=== PATIENT | female | born 1940 | race Caucasian/White ===

== ENCOUNTER 2020-12-04 16:39 | Inpatient (IN) ==
[2020-12-04 19:54] LABS: Urine Appearance Cloudy; Urine Bilirubin Negative (Negative); Urine Blood 2+ (Negative); Urine Color Yellow; Urine Glucose Negative (Negative); Urine Ketones Trace (Negative); Urine Nitrite Positive (Negative); Urine Protein Negative (Negative); Urine Specific Gravity 1.008 (1.010-1.030); Urine Urobilinogen Negative (Negative)
[2020-12-04 19:59] LABS: Urine Bacteria 3+ (Absent); Urine Red Blood Cell Trace(0-2/hpf) (Absent); Urine Squamous Epithelial Cell Present (Absent); Urine White Blood Cell 3+(>20/hpf) (Absent)
[2020-12-04 20:27] LABS: Urine Benzodiazepine Screen None Detected (None Detect); Urine Cannabinoids Screen None Detected (None Detect); Urine Opiates Screen None Detected (None Detect)
[2020-12-04 21:01] LABS: ABS Lymphocytes 0.9 10^3/ul (1.0-4.8); ABS Monocytes 0.5 10^3/ul (0-0.8); ABS Neutrophils 13.4 10^3/ul (1.5-7.7); Hematocrit 36 % (35-47); Hemoglobin 11.8 g/dL (12.0-16.0); Lymphocyte % 5.8 %; Mean Corpuscular HGB Conc 33 g/dL (31-36); Mean Corpuscular Hemoglobin 30 pg (27-31); Mean Corpuscular Volume 92 fL (80-97); Mean Platelet Volume 6.8 fL (7.4-10.4); Platelet Count 285 10^3/uL (150-450); Red Blood Count 3.94 10^6 /uL (3.70-4.87); Red Cell Distribution Width 13 % (10-15); White Blood Count 14.7 10^3/uL (3.5-10.8)
[2020-12-04] MEDS ORDERED: cefTRIAXone 1 gm/50 mL NS BAG 1 GM/50 ML BAG IV ONE (21:13)
[2020-12-04 21:15] LABS: Urine Buprenorphine Screen None Detected (None Detect); Urine Fentanyl Screen None Detected (None Detect); Urine Hydrocodone Screen None Detected (None Detect)
[2020-12-04 21:19] LABS: Troponin I 0.01 ng/mL (<0.03)
[2020-12-04 21:20] LABS: Albumin 3.9 g/dL (3.2-5.2); Albumin/Globulin Ratio 1.4 (1-3); BUN/Creatinine Ratio 22.1 (8-20); C Reactive Protein 51.38 mg/L (<8.01); Calcium 8.9 mg/dL (8.6-10.3); EGFR African American 61.9 (>60); EGFR Non-African American 51.1 (>60); Globulin 2.8 g/dL (2-4); Potassium 3.9 mmol/L (3.5-5.0); Total Bilirubin 1.1 mg/dL (0.2-1.0); Total Protein 6.7 g/dL (6.4-8.9)
[2020-12-04 22:12] LABS: INR 1.14 (0.82-1.09)
[2020-12-05] MEDS: NS 0.9% 1000 ml BAG 1,000 ML IV SCH ×2 (00:06→16:46)
[2020-12-05] MEDS: Heparin 5000 UNITS/ML 1 mL VIAL SUBCUT SCH ×4 (01:04→22:14)
[2020-12-05] MEDS ORDERED: Iodixanol (CONTRAST) 320 MG/ML 100 ML SDV IV ONE (06:16)
[2020-12-05 08:49] LABS: ABS Lymphocytes 0.7 10^3/ul (1.0-4.8); ABS Monocytes 0.4 10^3/ul (0-0.8); Hematocrit 33 % (35-47); Hemoglobin 11.3 g/dL (12.0-16.0); Lymphocyte % 5.1 %; Mean Corpuscular HGB Conc 34 g/dL (31-36); Mean Corpuscular Hemoglobin 31 pg (27-31); Mean Corpuscular Volume 90 fL (80-97); Mean Platelet Volume 6.7 fL (7.4-10.4); Platelet Count 277 10^3/uL (150-450); Red Blood Count 3.69 10^6 /uL (3.70-4.87); Red Cell Distribution Width 13 % (10-15); White Blood Count 13.2 10^3/uL (3.5-10.8)
[2020-12-05 08:59] LABS: BUN/Creatinine Ratio 24.7 (8-20); Calcium 8.5 mg/dL (8.6-10.3); EGFR African American 87.5 (>60); EGFR Non-African American 72.3 (>60); Potassium 3.5 mmol/L (3.5-5.0)
[2020-12-06] MEDS: NS 0.9% 1000 ml BAG 1,000 ML IV SCH (05:00)
[2020-12-06 06:27] LABS: ABS Lymphocytes 1.2 10^3/ul (1.0-4.8); ABS Monocytes 0.6 10^3/ul (0-0.8); ABS Neutrophils 8.3 10^3/ul (1.5-7.7); Eosinophil % 0.2 %; Hematocrit 31 % (35-47); Hemoglobin 10.6 g/dL (12.0-16.0); Lymphocyte % 12.1 %; Mean Corpuscular HGB Conc 34 g/dL (31-36); Mean Corpuscular Hemoglobin 31 pg (27-31); Mean Corpuscular Volume 91 fL (80-97); Mean Platelet Volume 7.2 fL (7.4-10.4); Platelet Count 261 10^3/uL (150-450); Red Blood Count 3.46 10^6 /uL (3.70-4.87); Red Cell Distribution Width 13 % (10-15); White Blood Count 10.1 10^3/uL (3.5-10.8)
[2020-12-06] MEDS ORDERED: cefTRIAXone 1 gm/50 mL NS BAG 1 GM/50 ML BAG IVPB ONE ×2 (06:30→08:00)
[2020-12-06 06:37] LABS: BUN/Creatinine Ratio 28.8 (8-20); EGFR African American 104.5 (>60); EGFR Non-African American 86.4 (>60); Potassium 3.1 mmol/L (3.5-5.0)
[2020-12-06] MEDS: Heparin 5000 UNITS/ML 1 mL VIAL SUBCUT SCH ×2 (06:44→14:53)
[2020-12-06] MEDS ORDERED: fentaNYL 100 mcg/2 ml 50 MCG/ML VIAL ONE ×2 (07:41→11:40)
[2020-12-06] MEDS ORDERED: Etomidate 20 mg/10 ml 2 MG/ML 10 ml VIAL ONE (07:43)
[2020-12-06] MEDS ORDERED: Glycopyrrolate IV 0.2 MG/ML 1 ML VIAL ONE (07:45)
[2020-12-06] MEDS ORDERED: Rocuronium 50 mg VIAL 10 mg/ml 5 ml VIAL (50 mg) ONE (07:45)
[2020-12-06] MEDS ORDERED: Succinylcholine 200 mg VIAL 20 mg/ml 10 ml VIAL (200 mg) ONE (07:45)
[2020-12-06] MEDS ORDERED: ROPIVACAINE 5 MG/ML 30 ML BTL (0.5%) ONE (07:50)
[2020-12-06] MEDS ORDERED: Midazolam 2 mg/2 ml VIAL 1 mg/ml 2 ml VIAL (2 mg) ONE (07:50)
[2020-12-06] MEDS ORDERED: Phenylephrine 40 mcg/mL 10mL (400mcg) SYRINGE ONE (07:51)
[2020-12-06] MEDS ORDERED: EPHEDrine (Pressors) 50 MG/ML VIAL ONE (07:52)
[2020-12-06] MEDS ORDERED: ceFAZolin VIAL VIAL ONE (08:39)
[2020-12-06 09:12] LABS: Magnesium 2.2 mg/dL (1.9-2.7)
[2020-12-06] MEDS ORDERED: Dexamethasone IV 4 MG/ML VIAL 1 ml VIAL ONE (10:25)
[2020-12-06] MEDS ORDERED: Ondansetron 4 mg VIAL 2 MG/ML 2 ml VIAL ONE (10:25)
[2020-12-06] MEDS ORDERED: Naloxone 0.4 mg VIAL 0.4 mg/ml 1 ml VIAL IV PRN (10:49)
[2020-12-06] MEDS ORDERED: Ondansetron 4 mg VIAL 2 MG/ML 2 ml VIAL IV PRN (10:49)
[2020-12-06] MEDS: fentaNYL 100 mcg/2 ml 50 MCG/ML VIAL IV PRN ×2 (11:41→12:07)
[2020-12-06] MEDS ORDERED: Morphine 2 MG/ML SYRINGE IV PRN (12:05)
[2020-12-06] MEDS ORDERED: Potassium Chlor 20 meq TAB.ER PO ONE (16:21)
[2020-12-06] MEDS: ceFAZolin 1 GM X 3 DOSES POST-OP Q8H (AddVan) IVPB SCH (18:58)
[2020-12-07] MEDS: ceFAZolin 1 GM X 3 DOSES POST-OP Q8H (AddVan) IVPB SCH ×2 (01:45→08:55)
[2020-12-07 04:45] LABS: ABS Lymphocytes 1.4 10^3/ul (1.0-4.8); ABS Monocytes 0.8 10^3/ul (0-0.8); ABS Neutrophils 7.1 10^3/ul (1.5-7.7); Eosinophil % 0.1 %; Hematocrit 28 % (35-47); Hemoglobin 9.4 g/dL (12.0-16.0); Lymphocyte % 14.6 %; Mean Corpuscular HGB Conc 34 g/dL (31-36); Mean Corpuscular Hemoglobin 31 pg (27-31); Mean Corpuscular Volume 92 fL (80-97); Mean Platelet Volume 6.8 fL (7.4-10.4); Nucleated Red Blood Cells % 0.1; Platelet Count 286 10^3/uL (150-450); Red Blood Count 3.04 10^6 /uL (3.70-4.87); Red Cell Distribution Width 13 % (10-15); White Blood Count 9.3 10^3/uL (3.5-10.8)
[2020-12-07] MEDS: cefTRIAXone 1 gm/50 mL NS BAG 1 GM/50 ML BAG IVPB SCH (05:02)
[2020-12-07] MEDS: NS 0.9% 1000 ml BAG 1,000 ML IV SCH ×2 (05:02→22:06)
[2020-12-07 05:06] LABS: ALT 12 U/L (7-52); AST 23 U/L (13-39); Albumin/Globulin Ratio 1.2 (1-3); Alkaline Phosphatase 53 U/L (34-104); Anion Gap 7 mmol/L (2-11); BUN/Creatinine Ratio 29.9 (8-20); Blood Urea Nitrogen 20 mg/dL (6-24); CO2 Carbon Dioxide 22 mmol/L (22-32); Calcium 7.7 mg/dL (8.6-10.3); Chloride 109 mmol/L (101-111); EGFR African American 102.7 (>60); EGFR Non-African American 84.9 (>60); Globulin 2.6 g/dL (2-4); Glucose 94 mg/dL (70-100); Potassium 3.7 mmol/L (3.5-5.0); Sodium 138 mmol/L (135-145); Total Protein 5.6 g/dL (6.4-8.9)
[2020-12-07 05:09] LABS: % Iron Saturation 11 % (15-55); Iron 26 ug/dL (50-212); Total Iron Binding Capacity 228 mcg/dL (250-450); Transferrin 163 mg/dL (203-362); Unsaturated Iron Binding < 213 ug/dL
[2020-12-07 05:25] LABS: Ferritin 106.3 ng/mL (11-307)
[2020-12-07] MEDS ORDERED: Senna TAB 8.6 mg TAB PO PRN (15:25)
[2020-12-07] MEDS: Magnesium Hydroxide LIQ 30 ML UDC PO PRN (15:28)
[2020-12-08] MEDS: Magnesium Hydroxide LIQ 30 ML UDC PO PRN (04:18)
[2020-12-08] MEDS: cefTRIAXone 1 gm/50 mL NS BAG 1 GM/50 ML BAG IVPB SCH (05:47)
[2020-12-08 06:23] LABS: ABS Eosinophils 0.1 10^3/ul (0-0.6); ABS Lymphocytes 1.4 10^3/ul (1.0-4.8); ABS Monocytes 0.8 10^3/ul (0-0.8); ABS Neutrophils 7.2 10^3/ul (1.5-7.7); Eosinophil % 0.7 %; Hematocrit 25 % (35-47); Hemoglobin 8.6 g/dL (12.0-16.0); Lymphocyte % 14.7 %; Mean Corpuscular HGB Conc 34 g/dL (31-36); Mean Corpuscular Hemoglobin 31 pg (27-31); Mean Corpuscular Volume 91 fL (80-97); Mean Platelet Volume 6.8 fL (7.4-10.4); Platelet Count 301 10^3/uL (150-450); Red Blood Count 2.77 10^6 /uL (3.70-4.87); Red Cell Distribution Width 13 % (10-15); White Blood Count 9.4 10^3/uL (3.5-10.8)
[2020-12-08 06:42] LABS: BUN/Creatinine Ratio 25.9 (8-20); Calcium 7.5 mg/dL (8.6-10.3); EGFR African American 121.3 (>60); EGFR Non-African American 100.3 (>60); Potassium 3.8 mmol/L (3.5-5.0)
[2020-12-08] MEDS ORDERED: Iron Sucrose 200 MG in NS 0.9% 100 ml BAG 100 ML IVPB ONE (09:00)
[2020-12-09] MEDS: NS 0.9% 1000 ml BAG 1,000 ML IV SCH (01:35)
[2020-12-09 05:18] LABS: ABS Eosinophils 0.2 10^3/ul (0-0.6); ABS Lymphocytes 1.4 10^3/ul (1.0-4.8); ABS Monocytes 0.7 10^3/ul (0-0.8); ABS Neutrophils 6.1 10^3/ul (1.5-7.7); Eosinophil % 2.4 %; Hematocrit 25 % (35-47); Hemoglobin 8.5 g/dL (12.0-16.0); Lymphocyte % 16.2 %; Mean Corpuscular HGB Conc 34 g/dL (31-36); Mean Corpuscular Hemoglobin 31 pg (27-31); Mean Corpuscular Volume 92 fL (80-97); Mean Platelet Volume 6.4 fL (7.4-10.4); Platelet Count 296 10^3/uL (150-450); Red Blood Count 2.72 10^6 /uL (3.70-4.87); Red Cell Distribution Width 13 % (10-15); White Blood Count 8.4 10^3/uL (3.5-10.8)
[2020-12-09] MEDS: cefTRIAXone 1 gm/50 mL NS BAG 1 GM/50 ML BAG IVPB SCH (06:15)
[2020-12-09] MEDS ORDERED: Cyanocobalamin INJ 1,000 MCG/ML VIAL 1 ML VIAL IM ONE (12:00)
[2020-12-09 15:25] LABS: Urine Appearance Cloudy; Urine Bilirubin Negative (Negative); Urine Blood 1+ (Negative); Urine Color Yellow; Urine Glucose Negative (Negative); Urine Ketones 1+ (Negative); Urine Nitrite Negative (Negative); Urine Protein Negative (Negative); Urine Specific Gravity 1.015 (1.010-1.030); Urine Urobilinogen Negative (Negative)
[2020-12-09 15:29] LABS: Urine Bacteria Absent (Absent); Urine Granular Casts Present (Absent); Urine Red Blood Cell 1+(3-5/hpf) (Absent); Urine Squamous Epithelial Cell Present (Absent); Urine White Blood Cell 3+(>20/hpf) (Absent)
[2020-12-10 05:22] LABS: ABS Eosinophils 0.2 10^3/ul (0-0.6); ABS Lymphocytes 1.4 10^3/ul (1.0-4.8); ABS Monocytes 0.7 10^3/ul (0-0.8); ABS Neutrophils 5.8 10^3/ul (1.5-7.7); Hematocrit 24 % (35-47); Hemoglobin 7.9 g/dL (12.0-16.0); Lymphocyte % 16.7 %; Mean Corpuscular HGB Conc 34 g/dL (31-36); Mean Corpuscular Hemoglobin 31 pg (27-31); Mean Corpuscular Volume 91 fL (80-97); Mean Platelet Volume 6.7 fL (7.4-10.4); Nucleated Red Blood Cells % 0.1; Platelet Count 362 10^3/uL (150-450); Red Blood Count 2.58 10^6 /uL (3.70-4.87); Red Cell Distribution Width 13 % (10-15); White Blood Count 8.2 10^3/uL (3.5-10.8)
[2020-12-10 05:47] LABS: BUN/Creatinine Ratio 21.4 (8-20); Calcium 7.5 mg/dL (8.6-10.3); EGFR African American 126.4 (>60); EGFR Non-African American 104.4 (>60); Potassium 3.5 mmol/L (3.5-5.0)
[2020-12-10 23:53] VITALS: BP 156/51
== END 2020-12-10 14:22 | DRG 521 ==
LOC: ED 16:39 → SSU 22:18
PROVIDERS: ADMIT Internal Medicine Interventional Cardiology; ATTEND Internal Medicine

== ENCOUNTER 2023-12-25 21:50 | Inpatient (IN) ==
[2023-12-25] MEDS: Acetaminophen IV 1 GM/100ML 1,000 MG/100 ML BAG IV ONE (23:18)
[2023-12-25 23:41] LABS: ABS Lymphocytes 1.5 10^3/uL (1.0-4.8); ABS Monocytes 0.8 10^3/uL (0.0-0.9); ABS Neutrophils 12.6 10^3/uL (1.5-7.6); ABS Nucleated RBC 0.01 10^3/ul; Eosinophil % 0.2 %; Hematocrit 39.5 % (35-45); Hemoglobin 13.2 g/dL (11.5-14.3); Mean Corpuscular Hemoglobin 30.8 pg (27-33); Mean Corpuscular Hgb Conc 33.4 g/dL (31-36); Mean Corpuscular Volume 92.1 fL (80-97); Mean Platelet Volume 6.9 fL (7.5-11.2); Nucleated Red Blood Cells % 0.1 %/100WBC (0.0-0.8); Platelet Count 376 10^3/uL (150-450); Red Blood Count 4.29 10^6/uL (3.63-4.92); Red Cell Distribution Width 13.3 % (12-17)
[2023-12-26 00:25] LABS: Albumin 4.1 g/dL (3.2-5.2); Albumin/Globulin Ratio 1.4 (1-3); Calcium 9.1 mg/dL (8.6-10.3); Creatinine, Serum 0.87 mg/dL (0.51-0.95); Potassium 3.5 mmol/L (3.5-5.0); Total Bilirubin 0.5 mg/dL (0.2-1.0); Total Protein 7.1 g/dL (6.4-8.9); eGFR CKD-EPI 66.5 (>60)
[2023-12-26 00:34] LABS: Activated Partial Thrombo Time 29.5 seconds (26.0-38.0); INR 1.02 (0.83-1.13)
[2023-12-26 01:20] LABS: High Sensitivity Troponin 1 Hr 5 pg/mL (<15)
[2023-12-26 02:47] LABS: Urine Appearance Clear; Urine Bilirubin Negative (Negative); Urine Blood Negative (Negative); Urine Color Light-Yellow; Urine Glucose 1+ (>=70 mg/dL) (Negative); Urine Ketones Negative (Negative); Urine Nitrite Negative (Negative); Urine Protein Negative (Negative); Urine Specific Gravity 1.014 (1.002-1.030); Urine Urobilinogen Negative (Negative)
[2023-12-26 02:51] LABS: Urine Bacteria Absent /HPF (Absent); Urine Red Blood Cell Trace(0-2/hpf) /HPF (0-Trace); Urine White Blood Cell 3+(>20/hpf) /HPF (0-Trace)
[2023-12-26] MEDS: cefTRIAXone 1 gm/50 mL D5W 1 GM/50 ML BAG IV SCH (02:58)
[2023-12-26] MEDS: Heparin 5000 UNITS/ML 1 mL VIAL SUBCUT ONE (03:01)
[2023-12-26] MEDS: Lactated Ringers 1000 ml BAG 1,000 ML IV ONE (03:43)
[2023-12-26] MEDS: Morphine 2 MG/ML SYRINGE IV PRN (06:38)
[2023-12-26] MEDS: Acetaminophen IV 1 GM/100ML 1,000 MG/100 ML BAG IV SCH (08:05)
[2023-12-26] MEDS ORDERED: Propofol 10 MG/ML 20 ML BTL ONE (11:14)
[2023-12-26] MEDS ORDERED: Lidocaine 2% PF 5 ML VIAL ONE (11:14)
[2023-12-26] MEDS ORDERED: fentaNYL 100 mcg/2 ml 50 MCG/ML VIAL ONE ×2 (11:15→15:17)
[2023-12-26] MEDS ORDERED: Rocuronium 50 mg VIAL 10 mg/ml 5 ml VIAL (50 mg) ONE (11:15)
[2023-12-26] MEDS ORDERED: Bupivacaine 0.5% SDV PF 30ML VIAL ONE (12:43)
[2023-12-26] MEDS ORDERED: ceFAZolin 2 GM in NS PREMIX 2 GM/100 ML BAG IVPB ONE (12:59)
[2023-12-26] MEDS ORDERED: Phenylephrine 40 mcg/mL 10mL (400mcg) SYRINGE ONE (13:16)
[2023-12-26] MEDS ORDERED: Dexamethasone IV 4 MG/ML VIAL 1 ml VIAL ONE (13:30)
[2023-12-26] MEDS ORDERED: Ondansetron 4 mg VIAL 2 MG/ML 2 ml VIAL ONE (13:30)
[2023-12-26] MEDS ORDERED: Glycopyrrolate IV 0.2 MG/ML 1 ML VIAL ONE (13:47)
[2023-12-26] MEDS ORDERED: Naloxone 0.4 mg VIAL 0.4 mg/ml 1 ml VIAL IV PRN (14:07)
[2023-12-26] MEDS: fentaNYL 100 mcg/2 ml 50 MCG/ML VIAL IV PRN (15:20)
[2023-12-26 15:29] LABS: Hematocrit 36.8 % (35-45); Hemoglobin 12.6 g/dL (11.5-14.3)
[2023-12-26] MEDS: Lactated Ringers 1000 ml BAG 1,000 ML IV SCH ×2 (16:41→16:55)
[2023-12-26] MEDS: Buffered Lidocaine 1% SYRIN 1 ml INTRADERM ONE (16:55)
[2023-12-26] MEDS: Famotidine IV 10 MG/ML 2 ml VIAL (20 mg) IV ONE (16:55)
[2023-12-26] MEDS: Enoxaparin 40 MG/0.4 ML SYR SUBCUT SCH (17:11)
[2023-12-26] MEDS: ceFAZolin 1 GM ADVAN 1 GM in NS 0.9% 50 ML 50 ML IVPB SCH (21:28)
[2023-12-27 09:42] LABS: Calcium 8.1 mg/dL (8.6-10.3); Creatinine, Serum 0.74 mg/dL (0.51-0.95); Potassium 3.7 mmol/L (3.5-5.0); eGFR CKD-EPI 80.7 (>60)
[2023-12-27 10:34] LABS: ABS Lymphocytes 1.2 10^3/uL (1.0-4.8); ABS Monocytes 0.7 10^3/uL (0.0-0.9); ABS Neutrophils 6.5 10^3/uL (1.5-7.6); Hematocrit 32.8 % (35-45); Lymphocyte % 14.2 %; Mean Corpuscular Hemoglobin 31.1 pg (27-33); Mean Corpuscular Hgb Conc 33.7 g/dL (31-36); Mean Corpuscular Volume 92.2 fL (80-97); Mean Platelet Volume 7.1 fL (7.5-11.2); Platelet Count 281 10^3/uL (150-450); Red Blood Count 3.55 10^6/uL (3.63-4.92); Red Cell Distribution Width 13.4 % (12-17); White Blood Count 8.5 10^3/uL (3.8-11.8)
[2023-12-27] MEDS ORDERED: Senna TAB 8.6 mg TAB PO PRN (12:28)
[2023-12-27] MEDS ORDERED: Magnesium Hydroxide LIQ 30 ML UDC PO PRN (12:28)
[2023-12-27] MEDS ORDERED: Polyethylene Glycol 3350 17 GM PACKET PO PRN (12:28)
[2023-12-27] MEDS: Magnesium Hydroxide LIQ 30 ML UDC PO SCH (21:55)
[2023-12-28] MEDS: cefTRIAXone 1 gm/50 mL D5W 1 GM/50 ML BAG IV SCH (09:31)
[2023-12-29] MEDS ORDERED: Polyethylene Glycol 3350 17 GM PACKET PO PRN (09:12)
[2023-12-29 10:31] LABS: Hemoglobin 11.8 g/dL (11.5-14.3)
[2023-12-29] MEDS: Nitrofurantoin (monohydrate/macrocrystals) 100 mg CAP PO SCH (14:48)
[2023-12-31 11:38] LABS: ABS Eosinophils 0.1 10^3/uL (0.0-0.5); ABS Lymphocytes 0.7 10^3/uL (1.0-4.8); ABS Monocytes 0.6 10^3/uL (0.0-0.9); ABS Neutrophils 4.2 10^3/uL (1.5-7.6); ABS Nucleated RBC 0.01 10^3/ul; Eosinophil % 1.7 %; Hematocrit 30.3 % (35-45); Hemoglobin 10.4 g/dL (11.5-14.3); Lymphocyte % 12.7 %; Mean Corpuscular Hemoglobin 31.3 pg (27-33); Mean Corpuscular Hgb Conc 34.2 g/dL (31-36); Mean Corpuscular Volume 91.6 fL (80-97); Mean Platelet Volume 6.6 fL (7.5-11.2); Nucleated Red Blood Cells % 0.1 %/100WBC (0.0-0.8); Platelet Count 346 10^3/uL (150-450); Red Blood Count 3.31 10^6/uL (3.63-4.92); Red Cell Distribution Width 13.6 % (12-17); White Blood Count 5.6 10^3/uL (3.8-11.8)
[2023-12-31 14:13] LABS: Rapid COVID-19 Molecular Undetected (Undetected)
[2024-01-01 09:04] LABS: Rapid COVID-19 Molecular Undetected (Undetected)
[2024-01-02 05:47] VITALS: BP 118/107
== END 2024-01-02 09:00 | DRG 481 ==
LOC: ED 21:50 → EDHOLD 12-26 02:34 → SSU 12-26 02:34 → SUATTDRO 12-26 02:34 → AA 12-26 11:24 → SSU 12-26 14:44
PROVIDERS: ADMIT Internal Medicine; ATTEND Internal Medicine